=== PATIENT | male | born 1955 | race Caucasian/White ===

== ENCOUNTER → 2023-08-01 10:48 | Outpatient (CLI) | payer MEDICARE, SELFPAY ==
--- NOTE | 2023-08-01 10:53 | DI.RAD.S_ITS ---
PROCEDURE: XR LUMBAR SPINE 2-3V INDICATIONS: Sciatica, right side TECHNIQUE: 3 views of the lumbar spine were acquired. COMPARISON: None. FINDINGS: Bones: 5 [id number] vertebrae are present. Dextroscoliotic curvature of the lumbar spine. Diffusely decreased osseous mineralization. Grade 1 anterolisthesis of L4 on L5. There is multilevel facet arthropathy, worse at L4-5 and L5-S1. Multilevel disc height loss with degenerative endplate changes and spurring is present. No vertebral body compression fractures. No suspicious bony lesions. Soft tissues: Overlying bowel gas pattern is normal. No suspicious soft tissue calcifications. IMPRESSION: Multilevel degenerative changes of the lumbar spine with dextroscoliotic curvature. Dictated by: Shamir Guzmán M.D. on 08/01/2023 at 13:28 Approved by: Shamir Guzmán M.D. on 08/01/2023 at 13:29
== END ==
LOC: RAD 10:51
PROVIDERS: Referring Provider Family Medicine; Visit Provider Family Medicine
DX: M54.31 Sciatica, right side (principal); M47.816 Spondylosis without myelopathy or radiculopathy, lumbar region; M47.817 Spondylosis without myelopathy or radiculopathy, lumbosacral region; M41.9 Scoliosis, unspecified
CPT/HCPCS: 72100

== ENCOUNTER → 2024-03-18 10:18 | Outpatient (CLI) | payer MEDICARE, SELFPAY ==
--- NOTE | 2024-03-18 10:20 | DI.RAD.S_ITS ---
PROCEDURE: XR LUMBAR SPINE 2-3V INDICATIONS: Lumbago with sciatica, unspecified side TECHNIQUE: 3 views of the lumbar spine were acquired. COMPARISON: [facility], CR, XR LUMBAR SPINE 2-3V, 08/01/2023, 10:02. FINDINGS: Bones: Trace, 4 mm of L4 on L5 anterolisthesis again seen. Moderate spondylotic changes otherwise, with facet arthropathy, disc space height loss, and osteophytes. No acute vertebral body height loss. Slight rightward spinal curvature. Soft tissues: Moderate fecal loading and bowel gas IMPRESSION: Similar moderate spondylotic changes of the lumbar spine with rightward slight spinal curvature and 4 mm of L4 on L5 anterolisthesis. If there is high concern for further derangement, consider MRI evaluation. Dictated by: Jabari Hatfield M.D. on 03/18/2024 at 15:25 Approved by: Jabari Hatfield M.D. on 03/18/2024 at 15:26
== END ==
LOC: RAD 10:19
PROVIDERS: PCP Family Medicine; Referring Provider Family Medicine; Visit Provider Family Medicine
DX: M47.26 Other spondylosis with radiculopathy, lumbar region (principal); M43.16 Spondylolisthesis, lumbar region; M54.40 Lumbago with sciatica, unspecified side
CPT/HCPCS: 72100

== ENCOUNTER 2024-06-22 08:30 | Outpatient (RCR) | payer MEDICARE, SELFPAY | END 2024-06-22 10:30 | LOC: CAR 08:30 | PROVIDERS: PCP Family Medicine; Referring Provider Internal Medicine Cardiovascular Disease; Visit Provider Internal Medicine Cardiovascular Disease | DX: I21.4 Non-ST elevation (NSTEMI) myocardial infarction (principal) | CPT/HCPCS: 93798 ==